=== PATIENT | male | born 1995 | race Caucasian/White ===

== ENCOUNTER 2023-07-27 17:16 | Emergency (ER) | payer OTHER ==
[~2023-07-27 17:16] MED LIST: Sodium Chloride 0.9% 1,000 ML BAG ONE
[2023-07-27] MEDS ORDERED: PROPOFOL 20 ML ONE (17:24)
[2023-07-27] MEDS ORDERED: Morphine 4 MG/ML VIAL ONE (17:30)
== END 2023-07-27 20:51 | disposition home or self-care (01) ==
LOC: MADERS 17:16
DX: S93.314A Dislocation of tarsal joint of right foot, initial encounter (principal); W01.0XXA Fall on same level from slipping, tripping and stumbling without subsequent striking against object, initial encounter
CPT/HCPCS: 27840; 94760; 96361; 96374; 99152; J2270; J2704; J7050